=== PATIENT | female | born 1985 | race Caucasian/White ===

== ENCOUNTER → 2020-09-24 | Outpatient (CLI) | payer OTHER ==
[~2020-09-24] VITALS: Ht 165.1 cm; Wt 104.3 kg
== END ==
LOC: OPSV 09:00
DX: M32.9 Systemic lupus erythematosus, unspecified (principal)
CPT/HCPCS: 96365; 96375; J0490; J1720; J7050

== ENCOUNTER → 2020-12-26 | Outpatient (CLI) | payer OTHER ==
[2020-12-26 11:50] LABS: RED BLOOD COUNT 5.02 M/UL (4.00-5.10); WHITE BLOOD COUNT 13.3 K/UL (4.5-11.0)
[2020-12-26 12:45] LABS: BUN/CREATININE RATIO 15 (0-10)
[2020-12-27 12:13] LABS: COMPLEMENT C3, SERUM 142 mg/dL (82-167); COMPLEMENT C4, SERUM 17 mg/dL (12-38)
[2020-12-27 18:13] LABS: DSDNA CRITHIDIA LUCILIAE IFA Negative (Negative)
== END ==
LOC: LAB 10:41
PROVIDERS: Internal Medicine
DX: M32.9 Systemic lupus erythematosus, unspecified (principal)
CPT/HCPCS: 36415; 80053; 85025; 86160; 86162; 86255

== ENCOUNTER → 2021-01-14 | Outpatient (CLI) | payer OTHER ==
[~2021-01-14] VITALS: Ht 165.1 cm; Wt 104.3 kg
== END ==
LOC: OPSV 09:00
DX: M32.9 Systemic lupus erythematosus, unspecified (principal)
CPT/HCPCS: 96365; 96375; J0490; J1720; J7030

== ENCOUNTER → 2021-03-27 | Outpatient (CLI) | payer OTHER ==
[~2021-03-27] VITALS: Ht 165.1 cm; Wt 104.3 kg
== END ==
LOC: OPSV 10:00
DX: M32.9 Systemic lupus erythematosus, unspecified (principal)
CPT/HCPCS: 96365; 96375; J0490; J1720; J7030

== ENCOUNTER → 2021-04-24 | Outpatient (CLI) | payer OTHER ==
[~2021-04-24] VITALS: Ht 165.1 cm; Wt 104.3 kg
== END ==
LOC: OPSV 12:00
DX: M32.9 Systemic lupus erythematosus, unspecified (principal)
CPT/HCPCS: 96365; 96375; J0490; J1720; J7030

== ENCOUNTER → 2021-06-05 | Outpatient (CLI) | payer OTHER ==
[~2021-06-05] VITALS: Ht 165.1 cm; Wt 104.3 kg
== END ==
LOC: OPSV 05-22 12:00
DX: M32.9 Systemic lupus erythematosus, unspecified (principal); Z88.2 Allergy status to sulfonamides; Z88.1 Allergy status to other antibiotic agents
CPT/HCPCS: 96365; 96375; J0490; J1720; J7030